=== PATIENT | female | born 1975 | race Caucasian/White ===

== ENCOUNTER 2021-06-22 15:17 | Emergency (ER) | payer MEDICARE, OTHER ==
[~2021-06-22 15:17] MED LIST: ASPIRIN EC81 MG PO; BACTRIM DS TAB1 EACH PO; CATAPRES 0.1MG0.1 MG PO; IBUPROFEN800 MG PO; LINZESS145 MCG PO; PROTONIX40 MG PO; SUBOXONE 8 MG-1 EACH SL; SYNTHROID75 MCG PO; ZOLOFT100 MG PO
== END 2021-06-22 17:04 | disposition home or self-care (01) ==
LOC: ER1 15:17
DX: R50.9 Fever, unspecified (principal); R51.9 Headache, unspecified; Z20.822 Contact with and (suspected) exposure to COVID-19; Z90.49 Acquired absence of other specified parts of digestive tract; Z88.1 Allergy status to other antibiotic agents
CPT/HCPCS: 99283; U0003

== ENCOUNTER 2021-07-07 14:36 | Inpatient (IN) | payer MEDICARE, OTHER ==
[~2021-07-07] VITALS: Ht 165.1 cm; Wt 86.2 kg
[~2021-07-07 14:36] MED LIST changes: -LINZESS145 MCG PO; +LINZESS72 MCG PO; +SYNTHROID50 MCG PO; -SYNTHROID75 MCG PO
[2021-07-07 15:03] LABS: HEMOGLOBIN 10.7 gm/dl (12.3-15.3); RED BLOOD COUNT 4.13 M/UL (4.00-5.10); WHITE BLOOD COUNT 8.4 K/UL (4.5-11.0)
[2021-07-07 15:40] LABS: BUN/CREATININE RATIO 14 (0-10)
[2021-07-07] MEDS ORDERED: VRAYLAR1.5 MG PO (20:34)
[2021-07-07] MEDS ORDERED: GABAPENTIN800 MG PO (20:34)
[2021-07-07] MEDS ORDERED: CLONIDINE HCL0.1 MG PO (20:35)
[2021-07-07] MEDS ORDERED: MOBIC15 MG PO (20:35)
[2021-07-07] MEDS ORDERED: ZYRTEC10 MG PO (20:35)
[2021-07-07] MEDS ORDERED: TIZANIDINE HCL4 MG PO (20:36)
[2021-07-07] MEDS ORDERED: VENLAFAXINE HCL75 M1 PO (20:37)
[2021-07-07] MEDS ORDERED: VENLAFAXINE HC150 M1 PO (20:37)
[2021-07-07] MEDS ORDERED: MONTELUKAST SOD10 MG PO (20:38)
[2021-07-07] MEDS ORDERED: VENTOLIN HFA 66.7 GM INH (20:38)
[2021-07-07] MEDS ORDERED: FERROUS SULFAT325 MG PO (20:39)
[2021-07-08 03:13] LABS: HEMOGLOBIN 9.8 gm/dl (12.3-15.3); RED BLOOD COUNT 3.78 M/UL (4.00-5.10); WHITE BLOOD COUNT 7.4 K/UL (4.5-11.0)
[2021-07-09 07:38] LABS: HEMOGLOBIN 9.9 gm/dl (12.3-15.3); RED BLOOD COUNT 3.82 M/UL (4.00-5.10)
[2021-07-09 07:41] LABS: WHITE BLOOD COUNT 5.4 K/UL (4.5-11.0)
[2021-07-09 07:58] LABS: BUN/CREATININE RATIO 12 (0-10)
[2021-07-10 07:06] LABS: HEMOGLOBIN 8.8 gm/dl (12.3-15.3); RED BLOOD COUNT 3.47 M/UL (4.00-5.10); WHITE BLOOD COUNT 5.6 K/UL (4.5-11.0)
[2021-07-10 07:26] LABS: BUN/CREATININE RATIO 13 (0-10)
[2021-07-10] MEDS ORDERED: FLOMAX 0.4 MG0.4 MG PO (13:38)
[2021-07-10] MEDS ORDERED: TORADOL 10 MG T10 MG PO (13:46)
[2021-07-10] MEDS ORDERED: CIPRO500 MG PO (13:46)
[2021-07-10] MEDS ORDERED: ZOFRAN4 MG PO (13:46)
== END 2021-07-10 14:40 | disposition home or self-care (01) | DRG 690 ==
LOC: ER1 14:36 → CDU 16:32 → MED SURG 4 16:51
PROVIDERS: Physician Assistant; ADMIT Internal Medicine
DX: N13.6 Pyonephrosis (principal); Z16.11 Resistance to penicillins; F11.20 Opioid dependence, uncomplicated; Z20.822 Contact with and (suspected) exposure to COVID-19; E03.9 Hypothyroidism, unspecified; F17.210 Nicotine dependence, cigarettes, uncomplicated; K21.9 Gastro-esophageal reflux disease without esophagitis; E66.9 Obesity, unspecified; G89.4 Chronic pain syndrome; B96.20 Unspecified Escherichia coli [E. coli] as the cause of diseases classified elsewhere; Z90.710 Acquired absence of both cervix and uterus; Z98.51 Tubal ligation status; Z98.84 Bariatric surgery status; Z88.1 Allergy status to other antibiotic agents; Z83.3 Family history of diabetes mellitus; Z80.3 Family history of malignant neoplasm of breast; Z80.8 Family history of malignant neoplasm of other organs or systems; Z68.30 Body mass index [BMI] 30.0-30.9, adult
CPT/HCPCS: 36415; 80048; 80053; 81001; 83690; 84703; 85025; 87040; 87077; 87086; 87186; 99284; 99285; G0378; J0696; J1885; J2270; J2405; J7030; Q9967; U0002

== ENCOUNTER 2021-08-13 14:20 | Emergency (ER) | payer MEDICARE, OTHER ==
[~2021-08-13 14:20] MED LIST changes: +CIPRO500 MG PO; +CLONIDINE HCL0.1 MG PO; +FERROUS SULFAT325 MG PO; +FLOMAX 0.4 MG0.4 MG PO; +GABAPENTIN800 MG PO; +MOBIC15 MG PO; +MONTELUKAST SOD10 MG PO; +TIZANIDINE HCL4 MG PO; +TORADOL 10 MG T10 MG PO; +VENLAFAXINE HC150 M1 PO; +VENLAFAXINE HCL75 M1 PO; +VENTOLIN HFA 66.7 GM INH; +VRAYLAR1.5 MG PO; +ZOFRAN4 MG PO; +ZYRTEC10 MG PO
[2021-08-13 15:37] LABS: HEMOGLOBIN 10.3 gm/dl (12.3-15.3); RED BLOOD COUNT 3.68 M/UL (4.00-5.10); WHITE BLOOD COUNT 9.2 K/UL (4.5-11.0)
[2021-08-13 16:06] LABS: BUN/CREATININE RATIO 19 (0-10)
[2021-08-13] MEDS ORDERED: BROMFED DM COU473 ML PO (19:45)
[2021-08-13] MEDS ORDERED: PROAIR DIGIHAL90 MCG INH (19:45)
[2021-08-13] MEDS ORDERED: PREDNISONE20 MG PO (19:45)
== END 2021-08-13 19:58 | disposition home or self-care (01) ==
LOC: ER1 14:20
PROVIDERS: Emergency Medicine
DX: J20.9 Acute bronchitis, unspecified (principal); Z20.822 Contact with and (suspected) exposure to COVID-19; Z88.1 Allergy status to other antibiotic agents; Z90.49 Acquired absence of other specified parts of digestive tract
CPT/HCPCS: 71045; 80053; 83605; 85025; 87040; 96374; 99285; J2405; U0002